=== PATIENT | female | born 1955 | race Caucasian/White ===

== ENCOUNTER 2016-11-02 10:00 | Inpatient (IN) | payer BC ==
[~2016-11-02] VITALS: Ht 160 cm; Wt 103.0 kg
--- NOTE | ~2016-11-02 | OR ---
PATIENT'S NAME: HARRY DEL CASTILLO [facility] AGE: 60 Y [address] ROOM: [place] [address] LOCATION: [id number] ADMIT DATE: 11/15/2016 OR/Procedure Report DISCHARGE DATE: FAMILY PHYSICIAN: Audie Jenkins MD ATTENDING PHYSICIAN: JAYCEE GUERRERO SURGEON: Jaycee Guerrero MD LABORATORY TESTER: 1. TYESHA Fritz. 2. Lee Cruz CST/WARRANTY COORDINATOR. DATE OF PROCEDURE: 11/15/[address] Guerrero / 11-18-2016 / kld PRE-OP DIAGNOSIS: Degenerative joint disease both knees. POST-OP DIAGNOSIS: Degenerative joint disease both knees. OPERATION/PROCEDURE PERFORMED: Bilateral medial compartment, unicompartmental arthroplasties with [place] [employer] robotic-arm guidance and computer navigation. ANESTHESIA: General endotracheal anesthesia plus bilateral adductor canal block plus periarticular local anesthesia (ropivacaine with epinephrine and Toradol). ESTIMATED BLOOD LOSS: Less than 10 mL (each side). DRAIN: None. SPECIMEN: None. COMPLICATIONS: None. IMPLANT SYSTEM: [place] Ajay Restoris: 1. Size 4 medial unicompartment femoral component bilaterally. 2. Size 3 medial compartment unicompartment tibial component bilaterally. 3. A 9 mm size 3 X3 Ajay tibial polyethylene insert bilaterally. INDICATION FOR SURGERY: Harry Del Castillo is a 60-year-old female who presents with advanced bilateral knee degenerative joint disease and associated severely compromised activities of daily living. The patient has decided to proceed with bilateral knee replacements after having been thoroughly counseled regarding the associated risks, benefits, and limitations. We have specifically reviewed the risks and implications of infection, deep venous thrombosis, pulmonary embolism, mortality, neurovascular complications, blood transfusion (and associated potential for disease transmission or transfusion reaction), stiffness, instability, mechanical deterioration of the components (due to wear and or loosening), and the potential need for revision. We have also emphasized the importance of active involvement and compliance with post- PATIENT'S NAME: HARRY DEL CASTILLO [facility] AGE: 60 Y [address] ROOM: [place] [address] LOCATION: [facility] ADMIT DATE: 11/15/2016 OR/Procedure Report DISCHARGE DATE: FAMILY PHYSICIAN: Audie Jenkins MD ATTENDING PHYSICIAN: JAYCEE GUERRERO operative physical therapy as a means of optimizing range of motion and functional recovery. Informed consent has been granted. We have also reviewed potential increased risks associated with bilateral (as opposed to staged) knee replacements including increased risk of requiring blood transfusion as well as the potential increased risk of mortality, deep venous thrombosis, and/or fat embolism syndrome. The patient has chosen to accept these potential increased risks. The patient has given informed consent to receive either a medial compartment, unicompartmental arthroplasty or total knee arthroplasty. The patient re- emphasizes in the preoperative holding area that her pain is localized exclusively to the medial joint lines bilaterally. She understands that a final decision regarding whether or not to perform a medial compartment, unicompartmental arthroplasty versus total knee arthroplasty will be made intraoperatively. DESCRIPTION OF PROCEDURE: The patient was positioned supine after administration of anesthesia and prophylactic antibiotics. A well-padded pneumatic tourniquet was placed around both proximal thighs, and both lower extremities were prepped and draped with vigilant sterile technique. The patient's name as well as the intended procedure were confirmed with a verbal time-out involving myself, the circulating nurse, the scrub nurse, and the anesthesiologist. Attention was first focused on the left lower extremity. Examination under anesthesia demonstrated no active skin lesions or masses. There was no deformity. There were well-healed inferomedial and inferolateral arthroscopy portal scars. There were no active skin lesions or masses. There was a mild effusion. There was no erythema. There was no abnormal warmth. Range of motion under anesthesia was from full extension to 130 degrees of flexion. There was no ligamentous insufficiency. The left lower extremity was elevated and exsanguinated with an Esmarch wrap, and the pneumatic tourniquet was inflated to 300mm. The knee was approached through a longitudinal midline incision. A medial parapatellar arthrotomy was performed and the patella was everted. Examination of the joint space demonstrated a moderate amount of benign- appearing translucent synovial fluid. Cruciate ligaments were intact. There was no synovitis. There were no loose bodies. There were small osteophytes at the medial and lateral margins of the femoral trochlea. There were mild grade 3 degenerative changes at the patella and at the medial portion of the femoral trochlea, but there were no high-grade partial-thickness degenerative changes at the patellofemoral joint, and there were no full-thickness degenerative changes at the patellofemoral joint. There was a moderate-sized osteophyte at the medial femoral condyle. There was full-thickness loss of articular PATIENT'S NAME: HARRY DEL CASTILLO [facility] AGE: 60 Y [address] ROOM: [place] [address] LOCATION: [facility] ADMIT DATE: 11/15/2016 OR/Procedure Report DISCHARGE DATE: FAMILY PHYSICIAN: Audie Jenkins MD ATTENDING PHYSICIAN: JAYCEE GUERRERO cartilage involving the majority of the medial femoral condyle and approximately 50% of the medial tibial plateau. There were no degenerative changes at the visible portions of the lateral compartment. There was mild fibrosis of the infrapatellar fat pad. There was complex degenerative tearing involving the posterior 2/3rd of the medial meniscus. The visible portion of the lateral meniscus was intact. Two computer navigation guidance pins were placed from anterior to posterior at the proximal 3rd of the tibial shaft and the distal third of the femoral shaft using appropriate soft tissue protectors. Pins were placed through the near cortex and up to the far cortex. The computer navigation tracker arrays were secured, and the distal femoral and proximal tibial check points were inserted. Osseous landmarks were obtained in order to calibrate the [employer] robotic-arm guidance system. The robotic-arm guidance software was utilized to optimize position of the tibial and femoral components resections in order to optimize coverage, tracking, and soft tissue balance. The robotic bur was subsequently utilized to prepare the distal medial femur and proximal medial tibia for the components. Trial components were placed. There was excellent tracking and excellent range of motion and optimal soft- tissue tension. Tibial and femoral trial components were removed. It should be noted that osteophytes were resected prior to adjusting component resections during the calibration phase. All prepared osseous surfaces were thoroughly irrigated with bacteriostatic pulsatile saline lavage and dried prior to cementing the tibial and femoral components in a single stage using Gill Simplex cement containing premixed tobramycin. All excess cement was removed. When the cement had hardened, periarticular soft tissues were infiltrated with the local anesthetic cocktail. Final range of motion was confirmed to be from 0 degrees of extension to 130 degrees of flexion. Tracking was confirmed to be optimal at the tibial femoral interface as well as at the patella femoral interface. Alignment of the limb prior to preparation of the osseous surfaces was 6 degrees of varus with a 2 degree flexion contracture (as per the computer navigation software). After the final components were placed, there was 0 degrees of extension and 1 degree of residual varus. The joint space was thoroughly irrigated with bacteriostatic pulsatile saline lavage several times throughout the case. The arthrotomy was closed with multiple simple interrupted #1 Vicryl sutures. Subcutaneous tissues were thoroughly irrigated prior to closure with superficial buried interrupted 2-0 Vicryl followed by surgical sindhu. PATIENT'S NAME: HARRY DEL CASTILLO [facility] AGE: 60 Y [address] ROOM: [address] [address] LOCATION: [facility] ADMIT DATE: 11/15/2016 OR/Procedure Report DISCHARGE DATE: FAMILY PHYSICIAN: Audie Jenkins MD ATTENDING PHYSICIAN: JAYCEE GUERRERO The dressing consisted of an occlusive Mepilex dressing. After conclusion of the left knee arthroplasty, an additional dose of intravenous antibiotics was administered. The left tourniquet had been released. Right lower extremity was elevated and exsanguinated with an Esmarch wrap. Distal femoral and proximal tibial pins were placed and the computer navigation tracker arrays were position. Range of motion was from a 1 degree flexion contracture to 130 degrees of flexion. There was 4 degrees of varus (as per the robotic arm guidance computer navigation software). The right knee was approached through a longitudinal midline incision. An abridged medial parapatellar arthrotomy was performed. Intraoperative findings demonstrated intact cruciate ligaments. There was a mild effusion consisting of benign-appearing translucent synovial fluid. There were no loose bodies. There was no synovitis. There was very mild grade 3 chondromalacia involving the lateral 2/3rd of the femoral trochlea and the apex of the patella. There was no high-grade partial thickness articular cartilage loss. There was no full-thickness articular cartilage loss at the patellofemoral joint. There was full-thickness articular cartilage loss involving over 50% of the medial femoral condyle and approximately 50% of the medial tibial plateau. There was degenerative tearing of the remnant of the medial meniscus. The visible portions of the lateral compartment articular cartilage and the visible portions of the lateral meniscus were normal. Osseous landmarks were obtained in order to calibrate the computer navigation system. The [employer] software was utilized to optimize component positioning, tracking, and soft-tissue balance. Cartilage mapping was performed. The distal femoral and proximal tibial resections were performed using the [employer] robotic arm bur. Trial components were placed. Appropriate tracking, excellent soft-tissue tensioning, and excellent range of motion was confirmed. All trial components were removed. Remnants of the medial meniscus was excised. Periarticular soft tissues were injected with local anesthetic cocktail. Prepared osseous surfaces were thoroughly irrigated with bacteriostatic PATIENT'S NAME: HARRY DEL CASTILLO [facility] AGE: 60 Y [address] ROOM: [place] [address] LOCATION: [facility] ADMIT DATE: 11/15/2016 OR/Procedure Report DISCHARGE DATE: FAMILY PHYSICIAN: Audie Jenkins MD ATTENDING PHYSICIAN: JAYCEE GUERRERO pulsatile saline lavage and dried prior to cementing the tibial and femoral components in a single stage using Gill Simplex cement containing premixed tobramycin. Final range of motion was from full extension to 130 degrees of flexion. There was excellent ligamentous balancing. There was excellent patellofemoral tracking. All excess cement was removed after implantation of the components. The knee was corrected to 1 degree of residual varus. The joint space was thoroughly irrigated with bacteriostatic pulsatile saline lavage at this point as well as several times throughout the case. The arthrotomy was closed with multiple simple interrupted #1 Vicryl sutures. Subcutaneous tissues were thoroughly irrigated and subsequently reapproximated with simple deep interrupted 0 Vicryl. The skin was closed with superficial buried interrupted 2-0 Vicryl, followed by surgical sindhu. The dressing consisted of an occlusive Mepilex dressing. The patient was extubated and transported to the Postanesthesia Care Unit in stable, comfortable condition. There were no complications. It should be noted that the physician's plumber's assistant played an active, integral role throughout this entire operation. By providing expert retraction, they greatly facilitated and expedited safe and effective exposure of the distal femur, proximal tibia and patella for preparation and implantation of the components. They were also actively involved in the patient's positioning, prepping and draping, as well as wound closure. MD LASHAY STEIN/modl /[id number] Corrected per Dr. Guerrero / 11-18-2016 / kld d: 11/16/16 0054 t: 11/19/16 2220, OPERATIVE SUMMARY
[~2016-11-02 10:00] MED LIST: AMLODIPINE-BEN1 EAC3 PO; CLARITIN D 24HR1 TAB PO; LIPITOR80 MG PO; MOBIC15 MG PO
[2016-11-16 05:33] LABS: HEMATOCRIT 38.6 % (33.0-46.0); HEMOGLOBIN 12.5 g/dL (10.0-15.0)
[2016-11-18] MEDS ORDERED: TYLENOL EXTRA500 MG PO (17:47)
[2016-11-18] MEDS ORDERED: ECOTRIN325 MG PO (17:48)
[2016-11-18] MEDS ORDERED: COLACE100 MG PO (17:50)
[2016-11-18] MEDS ORDERED: NEURONTIN300 MG PO (17:53)
[2016-11-18] MEDS ORDERED: PEPCID40 MG PO (17:53)
[2016-11-18] MEDS ORDERED: FLEXERIL10 MG PO (17:54)
[2016-11-18] MEDS ORDERED: DILAUDID 2MG(HYD2 MG PO (17:56)
== END 2016-11-18 18:15 | disposition disaster alternative care site (69) | DRG 462 ==
LOC: G3N 11-15 10:33
PROVIDERS: ADMIT Orthopaedic Surgery
PROC: 0SRC0J9 Replacement of Right Knee Joint with Synthetic Substitute, Cemented, Open Approach (ICD-10-PCS; principal; 2016-11-15)
PROC: 0SRD0J9 Replacement of Left Knee Joint with Synthetic Substitute, Cemented, Open Approach (ICD-10-PCS; principal; 2016-11-15)
PROC: 8E0YXBZ Computer Assisted Procedure of Lower Extremity (ICD-10-PCS; principal; 2016-11-15)
DX: M17.0 Bilateral primary osteoarthritis of knee (principal); E66.01 Morbid (severe) obesity due to excess calories; I10 Essential (primary) hypertension; E78.5 Hyperlipidemia, unspecified; L65.9 Nonscarring hair loss, unspecified; R73.03 Prediabetes; F32.9 Major depressive disorder, single episode, unspecified; Z68.39 Body mass index [BMI] 39.0-39.9, adult
CPT/HCPCS: C1713; C1751; C1776; G0008; J0690; J1100; J1170; J1885; J2001; J2250; J2405; J2795; J3010; J7120

== ENCOUNTER → 2016-11-04 | Outpatient (CLI) | payer BC ==
[~2016-11-04] MED LIST changes: +COLACE100 MG PO; +DILAUDID 2MG(HYD2 MG PO; +ECOTRIN325 MG PO; +FLEXERIL10 MG PO; +NEURONTIN300 MG PO; +PEPCID40 MG PO; +TYLENOL EXTRA500 MG PO
== END | disposition disaster alternative care site (69) ==
LOC: GRAD 09:43
DX: Z01.818 Encounter for other preprocedural examination (principal); M25.562 Pain in left knee; M25.561 Pain in right knee